=== PATIENT | female | born 1985 | race Caucasian/White ===

== ENCOUNTER 2025-03-11 23:20 | Observation (INO) | payer BC, MEDICARE ==
[2025-03-11] MEDS ORDERED: diphenhydrAMINE 50 MG/ML VIAL ONE (23:50)
[2025-03-11] MEDS ORDERED: Droperidol 5 MG/2 ML VIAL ONE (23:50)
[2025-03-11 23:58] LABS: #Basophils 0.04 10x3/uL (0.0-0.2); #Eosinophils 0.11 10x3/uL (0.0-0.5); #Monocytes 0.75 10x3/uL (0.0-1.1); #Neutrophils 7.07 10x3/uL (1.5-8.4); %Basophils 0.4 % (0.0-2.0); %Eosinophils 1.0 % (0.0-6.0); %Lymphocytes 29.6 % (18.0-47.0); %Monocytes 6.6 % (0.0-10.0); %Neutrophils 62.1 % (40.0-75.0); Hematocrit 43.7 % (34.9-44.5); Hemoglobin 14.0 g/dL (12.0-15.5); Mean Corpuscular Hemoglobin 26.0 pg (27.0-33.0); Mean Corpuscular Volume 81.2 fL (81.6-98.3); Platelet Count 360 10x3/uL (150-450); Red Blood Cell (RBC) Count 5.38 10x6/uL (3.90-5.03); White Blood Cell (WBC) Count 11.36 10x3/uL (3.5-10.5)
[2025-03-12 00:06] LABS: BHCG - Serum Negative (NEGATIVE); Pregs Control Background? CLEAR/WHITE (CLR/WHITE); Pregs Control Bar Appear? YES (CONTROL BAR)
[2025-03-12 00:13] LABS: ALT (SGPT) 14 U/L (Less than 34); AST (SGOT) 22 U/L (11-34); Albumin 4.3 g/dL (3.1-4.5); Alkaline Phosphatase 49 U/L (40-110); Anion Gap 17 mmol/L (10-20); BUN (Urea Nitrogen) 11 mg/dL (7.0-18.7); Bilirubin, Total 0.3 mg/dL (0.3-1.2); Calc. Creatinine Clearance 0 mL/min (70-130); Calcium 9.0 mg/dL (7.8-10.44); Carbon Dioxide 20 mmol/L (22-29); Chloride 106 mmol/L (98-107); Globulin 3.2 g/dL (2.4-3.5); Glucose 126 mg/dL (70-105); Lipase 34 U/L (8-78); Potassium 3.9 mmol/L (3.5-5.1); Sodium 139 mmol/L (136-145)
[2025-03-12] MEDS ORDERED: Ondansetron PF 4 MG/2 ML Vial ONE ×2 (00:44→11:11)
[2025-03-12 03:05] VITALS: BMI 52.6
[2025-03-12] MEDS ORDERED: Ondansetron PF 4 MG/2 ML Vial IVP PRN (03:30)
[2025-03-12] MEDS ORDERED: Mag-Al 1200 mg/1200 mg/30 ML UDCUP PO PRN (07:59)
[2025-03-12] MEDS ORDERED: hydrALAZINE 20 MG/ML VIAL SLOW IVP PRN (07:59)
[2025-03-12] MEDS ORDERED: Calcium Carbonate 500 MG ChewTAB PO PRN (07:59)
[2025-03-12] MEDS: Famotidine 20 MG TAB PO SCH (08:33)
[2025-03-12] MEDS: Heparin 5,000 UNITS/ML VIAL SC SCH (08:33)
[2025-03-12] MEDS ORDERED: Bupivacaine HCl 0.5%/Epinephrine 1:200,000/PF 30 ml Vial ONE (10:14)
[2025-03-12] MEDS ORDERED: PROPOFOL 20 ML ONE (10:48)
[2025-03-12] MEDS ORDERED: SUGAMMADEX SODIUM 200 MG/2 ML VIAL ONE (11:29)
[2025-03-12] MEDS ORDERED: HYDROmorphone 2 MG/ML VIAL ONE (12:29)
[2025-03-12] MEDS ORDERED: Pantoprazole 40 MG DR.TAB PO PRN (12:40)
[2025-03-12] MEDS ORDERED: Ibuprofen 400 MG TAB PO PRN (13:09)
[2025-03-12] MEDS ORDERED: HYDROcodone/Acetaminophen 5/325 mg Tablet PO PRN ×2 (13:09)
[2025-03-12] MEDS ORDERED: Ibuprofen 800 MG TAB PO PRN (13:09)
[2025-03-12 13:16] VITALS: TEMP 98
[2025-03-12] MEDS: Ondansetron PF 4 MG/2 ML Vial IVP PRN (14:28)
[2025-03-12 19:39] VITALS: BP 128/70
== END 2025-03-12 19:15 | disposition home or self-care (01) ==
LOC: CSHERS 23:20 → CSHERHOLD 03-12 01:03 → CSHTELE 03-12 02:38
PROVIDERS: ADMIT Surgery; ATTEND Surgery
PROC: 0FT44ZZ Resection of Gallbladder, Percutaneous Endoscopic Approach (ICD-10-PCS; principal; 2025-03-12)
DX: K80.12 Calculus of gallbladder with acute and chronic cholecystitis without obstruction (principal); K21.9 Gastro-esophageal reflux disease without esophagitis; G43.909 Migraine, unspecified, not intractable, without status migrainosus; E66.01 Morbid (severe) obesity due to excess calories; Z68.43 Body mass index [BMI] 50.0-59.9, adult; Z87.891 Personal history of nicotine dependence; Z79.899 Other long term (current) drug therapy
CPT/HCPCS: 76705; 80053; 83690; 84703; 85025; 88304; 96365; 96372; 96375; 96376; C1889; G0378; J1100; J1171; J1200; J1644; J1790; J2270; J2405; J2543; J2704; J3010; J7120; S2900